=== PATIENT | female | born 1985 ===

== ENCOUNTER 2018-06-20 13:32 | Emergency (ER) | payer OTHER ==
[2018-06-20 14:03] VITALS: BP 141/87; PULSE 80; RESP 16; TEMP 98.3; O2SAT 100
--- NOTE | 2018-06-20 14:53 | ED PDOC ---
HPI: CCC, URI, Sore Throat Time Seen by Provider: 06/20/18 14:31 Chief Complaint (Nursing): Headache Chief Complaint (Provider): Headache History Per: Patient History/Exam Limitations: no limitations Onset/Duration Of Symptoms: Days (x3) Current Symptoms Are (Timing): Still Present Associated Symptoms: denies: Nausea, Vomiting, Diarrhea Additional Complaint(s): Shayy Arciniega is a 33 year old female with no past medical history, who presents to the emergency department complaining of having a frontal headache, sinus pressure and feeling cold, onset x3 days. Patient states she is able to tolerate PO and is taking advil for pain. Patient denies any fever, nausea, vomiting or diarrhea. PMD: no provider Past Medical History Reviewed: Historical Data, Nursing Documentation, Vital Signs Vital Signs: Last Vital Signs Temp 98.3 F 06/20/18 14:01 Pulse 80 06/20/18 14:01 Resp 16 06/20/18 14:01 BP 141/87 06/20/18 14:01 Pulse Ox 100 06/20/18 14:01 - Medical History PMH: No Chronic Diseases - Surgical History Surgical History: No Surg Hx - Family History Family History: States: Unknown Family Hx - Social History Current smoker - smoking cessation education provided: No Alcohol: None Drugs: Denies - Home Medications Home Medications: Ambulatory Orders Medication Instructions Recorded Guaifen/Phenyleph/Acetaminophn 1 tab PO BID #14 tab 06/20/18 [Mucinex Fast-Max Cold & Sinus 325 mg-200 mg-5] - Allergies Allergies/Adverse Reactions: Allergies Allergy/AdvReac Type Severity Reaction Status Date / Time No Known Allergies Allergy Verified 06/20/18 13:59 Review of Systems ROS Statement: Except As Marked, All Systems Reviewed And Found Negative Constitutional: Negative for: Fever Gastrointestinal: Negative for: Nausea, Vomiting, Diarrhea Neurological: Positive for: Headache Physical Exam - Reviewed Nursing Documentation Reviewed: Yes Vital Signs Reviewed: Yes - Physical Exam Appears: Positive for: Non-toxic, No Acute Distress Head Exam: Positive for: ATRAUMATIC, NORMOCEPHALIC Skin: Positive for: Normal Color ENT: Positive for: Pharynx Is (normal) Cardiovascular/Chest: Positive for: Regular Rate, Rhythm. Negative for: Murmur, Bradycardia, Tachycardia Respiratory: Positive for: Normal Breath Sounds. Negative for: Accessory Muscle Use, Respiratory Distress - ECG O2 Sat by Pulse Oximetry: 100 (RA) Pulse Ox Interpretation: Normal Medical Decision Making Medical Decision Making: Time: 14:31 Plan: --Give Rx for medications Scribe Attestation: Documented by Joe Beltre, acting as a scribe for Jeanette Lofton PA-C Provider Scribe Attestation: All medical record entries made by the Scribe were at my direction and personally dictated by me. I have reviewed the chart and agree that the record accurately reflects my personal performance of the history, physical exam, medical decision making, and the department course for this patient. I have also personally directed, reviewed, and agree with the discharge instructions and disposition. Disposition - Clinical Impression Clinical Impression: Common cold - Patient ED Disposition Is Patient to be Admitted: No Counseled Patient/Family Regarding: Diagnosis, Need For Followup, Rx Given - Disposition Disposition: Routine/Home Disposition Time: 14:52 Condition: GOOD Prescriptions: Guaifen/Phenyleph/Acetaminophn [Mucinex Fast-Max Cold & Sinus 325 mg-200 mg-5] 1 tab PO BID #14 tab Instructions: Cough, Runny Nose, and the Common Cold (DC) Forms: [employer] App (Frisian) Print Language: SAMOAN
== END 2018-06-20 15:11 | disposition home or self-care (01) ==
LOC: H.ER 13:32
DX: R51 Headache (principal)